=== PATIENT | male | born 1960 | race Caucasian/White ===

== ENCOUNTER 2019-05-19 01:56 | Emergency (ER) | payer OTHER ==
[2019-05-19 02:09] VITALS: BP 142/128
[2019-05-19] MEDS ORDERED: Acetaminophen/HYDROcodone 325-5 MG Tab PO ONE (02:39)
[2019-05-19] MEDS ORDERED: Naproxen 500 MG Tab PO STA (02:44)
--- NOTE | 2019-05-19 02:51 | EDM.PDOC ---
ED HPI GENERAL MEDICAL PROBLEM - General Chief Complaint: Lower Extremity Injury/Pain Stated Complaint: RT FOOT PAIN Time Seen by Provider: 05/19/19 02:06 Source of Information: Reports: Patient History Limitations: Reports: No Limitations - History of Present Illness INITIAL COMMENTS - FREE TEXT/NARRATIVE: The patient states that he had right first MTP joint pain and swelling when he woke up yesterday morning, 05/18/2019, and that the pain and swelling have only gotten worse over the course of the day. He applied some ice to the joint, without relief, however, he has not taken any hvlp-apt-kuhnxgd analgesics. The patient states that he had similar symptoms in the same joint on 03/27/2019, although not as severe. Again he tried ice, but he did not try any over-the- counter analgesics. He did not seek medical evaluation, and he states that the pain resolved after a few days. No recent fever. No recent injury to the foot. The patient's PCP is Dr. Piter Marcano. His Property Maintenance Technician is Dr. James Messer. Right Feet Pain Score (Numeric/FACES): 9 - Related Data Allergies Allergy/AdvReac Type Severity Reaction Status Date / Time No Known Allergies Allergy Verified 05/19/19 02:08 Home Meds: Home Meds Pravastatin [Pravachol] 20 mg PO DAILY 03/30/16 [History] Past Medical History Cardiovascular History: Reports: High Cholesterol Oncologic (Cancer) History: Reports: Malignant Melanoma - Past Surgical History HEENT Surgical History: Reports: Oral Surgery (wisdom teeth extracted), Tonsillectomy Oncologic Surgical History: Reports: Other (See Below) (Excision of malignant melanoma off back 1987) Social & Family History - Tobacco Use Smoking Status *Q: Never Smoker - Alcohol Use Alcohol Use History: Yes Days Per Week of Alcohol Use: 3 Number of Drinks Per Day: 3 Total Drinks Per Week: 9 - Recreational Drug Use Recreational Drug Use: Yes Drug Use in Last 12 Months: Yes Recreational Drug Type: Reports: Marijuana/Hashish (smokes regularly) - Living Situation & Occupation Living situation: Reports: , with Spouse, with Family (Son) Occupation: Employed (Maintenance at [employer]) Review of Systems - Review of Systems Review Of Systems: ROS reveals no pertinent complaints other than HPI. ED EXAM, GENERAL - Physical Exam Exam: See Below Exam Limited By: No Limitations General Appearance: Alert, WD/WN, No Apparent Distress Extremities: Other (Mild to moderate swelling about the first MTP, with considerable tenderness to palpation or attempted PROM to the first toe. No tenderness to palpation of the remainder of the foot. Neurovascular status of the right lower extremity is intact.) Course - Vital Signs Last Recorded V/S: Last Vital Signs Temp 36.4 C 05/19/19 02:08 Pulse 88 05/19/19 02:08 Resp 18 05/19/19 02:08 BP 142/128 H 05/19/19 02:08 Pulse Ox 99 05/19/19 02:08 - Orders/Labs/Meds Orders: Active Orders 24 hr Category Date Time Status Acetaminophen/HYDROcodone [Cadillac 325-5 MG] Med 05/19/19 02:39 Once 2 tab PO ONETIME ONE Naproxen [Naprosyn] Med 05/19/19 02:44 Stat 500 mg PO ONETIME STA - Re-Assessments/Exams Free Text/Narrative Re-Assessment/Exam: 05/19/19 02:45 The patient is most likely suffering from podagra, however, current guidelines consistently recommend that a definitive diagnosis be made before a patient is treated repeatedly for gout or put on gout prophylaxis. The diagnosis of gout is made by microscopic analysis of the joint fluid, not by a serum uric acid level; an elevated uric acid level only indicates that patient is at risk for developing gout, not that they actually have gout. Since arthrocentesis of the first MTP joint is technically difficult, the plan for this patient is to start him on naproxen and Cadillac, discharge him home with an [facility] prescription for Cadillac, have him take mavu-rsm-jlpiqhe Aleve, 2 tablets BID, and have him follow-up with Dr. Daly as soon as possible for arthrocentesis and definitive diagnosis. The patient is happy with this plan. The patient states that he had blood work that included kidney function performed just last week, and that his kidney function is normal. I have printed some information for the patient regarding gout. Departure - Departure Time of Disposition: 02:49 Disposition: Home, Self-Care 01 Condition: Good Clinical Impression: Monoarthritis of right foot - Discharge Information *PRESCRIPTION DRUG MONITORING PROGRAM REVIEWED*: Not Applicable *COPY OF PRESCRIPTION DRUG MONITORING REPORT IN PATIENT JUNO: Not Applicable Referrals: Suleman Daly MD [Physician] - Piter Marcano MD [Primary Care Provider] - James Messer MD [Ordering Only Provider] - Additional Instructions: You were seen in the emergency room for right great toe joint pain. Based on your history and physical examination, you are most likely suffering from podagra = a gouty flare in your great toe joint, however, other medical conditions, such as pseudogout, can mimic podagra. You have been started on the NSAID naproxen, and the opioid pain reliever Cadillac. A prescription for Cadillac has been provided it to you via [employer]. Take 2 tablets of fdcl-ysi-yoyowfh Aleve every 12 hours, with food. You may take 1-2 tablets of Cadillac up to every 6 hours, as needed for pain not relieved by Aleve. If you take Cadillac, do not drive or operate heavy machinery for 12 hours afterwards. Cadillac may cause constipation, so consider taking a stool softener. Try to keep the toe joint WARM, not cold. Follow-up with the Orthopedic Surgeon Dr. Suleman Daly at the next available appointment, for definitive diagnosis by arthrocentesis (obtaining fliud from the joint) and microscopic analysis. If any other problems, please do not hesitate to return to the ER. - My Orders Last 24 Hours: My Active Orders 05/19/19 02:39 Acetaminophen/HYDROcodone [Cadillac 325-5 MG] 2 tab PO ONETIME ONE 05/19/19 02:44 Naproxen [Naprosyn] 500 mg PO ONETIME STA - Assessment/Plan Last 24 Hours: My Active Orders 05/19/19 02:39 Acetaminophen/HYDROcodone [Cadillac 325-5 MG] 2 tab PO ONETIME ONE 05/19/19 02:44 Naproxen [Naprosyn] 500 mg PO ONETIME STA
== END 2019-05-19 03:05 | disposition home or self-care (01) ==
LOC: JD.ED 01:56
DX: M13.171 Monoarthritis, not elsewhere classified, right ankle and foot (principal); E78.00 Pure hypercholesterolemia, unspecified; Z79.899 Other long term (current) drug therapy
CPT/HCPCS: 99283; A9270

== ENCOUNTER 2025-04-07 13:54 | Emergency (ER) | payer OTHER ==
[2025-04-07] MEDS: Ondansetron 4 MG/2 ML SDV IVPUSH ONE ×2 (15:19→19:01)
[2025-04-07 15:25] LABS: BASOPHILS ABSOLUTE AUTO 0.0 K/mm3 (0.0-0.2); BASOPHILS PERCENT AUTO 0.2 % (0.0-1.0); EOSINOPHILS ABSOLUTE AUTO 0.0 K/mm3 (0.0-0.4); EOSINOPHILS PERCENT AUTO 0.0 % (0.0-6.0); IMMATURE GRAN ABSOLUTE AUTO 0.03 K/mm3 (0.00-0.05); IMMATURE GRAN PERCENT AUTO 0.7 % (0.0-0.4); LYMPHOCYTES ABSOLUTE AUTO 0.7 K/mm3 (1.0-4.8); LYMPHOCYTES PERCENT AUTO 15.2 % (24.0-44.0); MEAN PLATELET VOLUME 10.0 fl (9.4-12.4); MONOCYTES ABSOLUTE AUTO 0.3 K/mm3 (0.0-0.8); MONOCYTES PERCENT AUTO 6.2 % (0.0-8.0); NEUTROPHILS ABSOLUTE AUTO 3.4 K/mm3 (1.8-7.7); NEUTROPHILS PERCENT AUTO 77.7 % (41.0-71.0); NRBC ABSOLUTE 0.00 (0.00-0.02); NRBC PERCENT 0.0 % (0.0-0.2); PLATELET COUNT,PLT 160 K/mm3 (150-400); RED BLOOD CELL COUNT 4.71 M/mm3 (4.52-5.90); WHITE BLOOD CELL COUNT,WBC 4.35 K/mm3 (3.9-11.3)
[2025-04-07 15:41] LABS: INR 1.01
[2025-04-07 15:48] LABS: A/G RATIO 1.2 (1-2); ALANINE AMINOTRANSFERASE,ALT 78.0 U/L (16-63); ASPARTATE AMNIOTRANSFERASE,AST 28.0 U/L (15-37); BILIRUBIN TOTAL 0.6 mg/dL (0.2-1.0); BLOOD UREA NITROGEN,BUN 14.0 mg/dL (7-18); CARBON DIOXIDE,CO2 26.0 mEq/L (21-32); CHLORIDE,CL 101.0 mEq/L (98-107); CREATINE KINASE,CK 71.0 U/L (39-308); CREATININE 1.0 mg/dL (0.7-1.3); EST CRCL DRUG DOSING (CG) 65.77 mL/min; ESTIMATED GFR 85.0 mL/min (>60); GLUCOSE RANDOM 151.0 mg/dL (70-99); POTASSIUM,K 4.3 mEq/L (3.5-5.1); PROTEIN TOTAL,TP 7.2 g/dl (6.4-8.2); SODIUM,NA 138.0 mEq/L (136-145)
[2025-04-07 18:00] LABS: BUPRENORPHINE SCREEN,URINE NEGATIVE (CUTOFF=10); METHADONE SCREEN, URINE NEGATIVE (CUT0FF=200); METHAMPHETAMINES SCREEN, URINE NEGATIVE (CUTOFF=500); OXYCODONE SCREEN,URINE NEGATIVE (CUT0FF=100); THC SCREEN,URINE 20 NG/ML PRESUMPTIVE POSITIVE (CUTOFF=50)
[2025-04-07 18:05] LABS: AMPHETAMINES SCREEN, URINE NEGATIVE (CUTOFF=500)
[2025-04-07 20:32] VITALS: BP 149/87; PULSE 76
== END 2025-04-07 18:45 | disposition home or self-care (01) ==
LOC: JD.ED 13:54
DX: R21 Rash and other nonspecific skin eruption (principal); R53.83 Other fatigue; R11.2 Nausea with vomiting, unspecified; E86.0 Dehydration; E78.00 Pure hypercholesterolemia, unspecified; Z79.899 Other long term (current) drug therapy
CPT/HCPCS: 36415; 80053; 80306; 82550; 83605; 83690; 83735; 85025; 85610; 85652; 86140; 93005; 96365; 96375; 96376; 99284; J2405; J3490; J7030